=== PATIENT | male | born 1955 ===

== ENCOUNTER 2020-11-29 12:51 | Outpatient (CLI) | payer OTHER | END 2020-11-29 13:39 | disposition home or self-care (01) | LOC: OFIC 805 12:51 | PROVIDERS: ATTEND Otolaryngology Otology & Neurotology | DX: H90.3 Sensorineural hearing loss, bilateral (principal); H69.81 Other specified disorders of Eustachian tube, right ear; C11.9 Malignant neoplasm of nasopharynx, unspecified ==